=== PATIENT | female | born 1940 | race Caucasian/White ===

== ENCOUNTER 2017-09-01 08:08 | Inpatient (IN) | payer OTHER, SELFPAY ==
[2017-08-19 09:47] VITALS: BMI 25.4
[2017-09-01] VITALS (17 sets, daily range): BP systolic 85–168; BP diastolic 45–94; PULSE 71–82; RESP 12–20; TEMP 35–37.2; O2SAT 94–100; BMI 26.0
[2017-09-01] MEDS: LACTATED RINGERS 1,000 ML 42 ML IV ×2 (09:33→11:13)
--- NOTE | 2017-09-01 09:36 | SUR.OPER ---
Supine on padded OR bed. Pillow under head, arms secured on padded armboards <90 degree abduction. Safety belt across torso. Non-operative leg secured with tape over blanket over lower leg. Operative leg secured in [employer]/Parviz positioner.
[2017-09-01] MEDS: ACETAMINOPHEN 325 MG TABLET 975 MG PO (09:44)
[2017-09-01] MEDS: CELECOXIB 200 MG CAPSULE PO (09:44)
[2017-09-01] MEDS: CEFAZOLIN 2 GM/100 ML FROZ.PIGGY IV ×2 (09:48→15:44)
[2017-09-01] MEDS: BUPIVACAINE LIPOSOME 266 MG/20 ML VIAL INJ (10:58)
[2017-09-01] MEDS: MORPHINE 4 MG/ML INJ IV (10:58)
[2017-09-01] MEDS: BUPIVACAINE 0.25% W/ EPI 50 ML VIAL INJ (10:58)
--- NOTE | 2017-09-01 11:25 | PM.PREOP ---
Pre-operative Note Interval Note Pre-op Check: History & Physical Reviewed by Physician and Changes
--- NOTE | 2017-09-01 11:34 | DI.RAD.S_ITS ---
PROCEDURE: XR KNEE RT 1TO2V INDICATIONS: 76 year-old female with right knee replacement. TECHNIQUE: 2 postoperative view(s) of the knee acquired. [facility] 11[facility]23[facility], [facility]2014, 10:02. [facility] 09/09/2013, 15:07. FINDINGS: Bones: Patient is status post knee joint arthroplasty. Hardware components are in expected positions. Visualized bony structures are intact. Soft tissues: Overlying postoperative changes are noted, including intra-articular fluid and gas. IMPRESSION: Status post right knee arthroplasty, with hardware components in expected positions. Dictated by: Eddie Breaux M.D. on 09/01/2017 at 11:54 Approved by: Eddie Breaux M.D. on 09/01/2017 at 11:55
--- NOTE | 2017-09-01 11:37 | P.OP_ITS ---
Operative Date/Time/Diagnoses - Date of procedure: 09/01/17 Time of procedure: 11:35 Pre-op diagnosis: Right knee osteoarthritis Post-op diagnosis: same Procedure & Clinicians Procedure: right total knee replacement Same procedure as scheduled: Yes Indications: The patient has had progressively worsening right knee pain with radiographic changes consistent with arthritis. Non-operative management has failed and the patient has requested total knee replacement. The risks, benefits and alternatives to surgery were discussed with the patient prior to proceeding. Risks discussed included, but were not limited to, failure to relieve pain, stiffness, infection, nerve damage, deep venous thrombosis, pulmonary embolism, stroke, coma, heart attack, permanent paralysis and , as well as the potential need for eventual revision of the prosthetic. Surgeon: Oscar Parker [employer] Specialist: Sarah Pedro Click Yes if Unassisted: No Anesthesia Type: Spinal, Sedation and Local Operative Notes Findings: severe tricompartmental osteoarthritis Closure Type: primary Specimen(s): none sent Implants & Drains: Implants used in this procedure were manufactured by the [employer] and [employer] and included the BCS II Journey total knee replacement with a size 5 right cobalt chromium femur, size 5 right non porous tibial base plate, a 12 mm cross-linked polyethylene BCS II tibial insert and a 32 mm oval Lee Ann II patellar component. Applied: implant(s) Estimated Blood Loss (mL): 50 Blood products transfused: none Tourniquet time (min): 51 Procedure in detail: The patient was seen in the pre-operative area, where the patient identified the right knee as the operative site and this was marked with my initials. The patient received pre-operative antibiotics, and was taken to the operating room and placed on the operative table in the supine position. After satisfactory anesthesia, a night time babysitter out was performed. The right leg was encircled with a tourniquet about the proximal thigh, and the leg was prepared from the toes to the tourniquet with ChloroPrep in the usual fashion and draped through sterile drapes. The leg was elevated and exsanguinated with Eschmark bandage and the tourniquet inflated to 250 mmHg pressure. The knee was approached through an approximately 18 cm incision centered over the patella and carried into the knee through a medial parapatellar arthrotomy. The anterior osteophytes and soft tissues were removed. The rotational landmarks of Douglas's line and the transepicondylar axis were marked on the femur with electrocautery, and intramedullary guide holes for the femur and tibia were created. The distal femoral cut was made in 6 degrees of valgus using the intramedullary guide at the primary cut setting. The proximal tibial cut was then made using the intramedullary guide, taking 9 mm of bone off the less involved side. The extension gap was checked and the rotation of the femoral component confirmed with the gap balancing system. The anterior, posterior and chamfer cuts were then made. The posterior osteophytes and soft tissues were then removed. The posterior capsule was injected with part of a mixture of 50 ml 0.25% Marcaine mixed with 20 ml Exparel and 4 mg of morphine for post-operative pain control. The remainder of this mixture was injected into the capsule and subcutaneous tissues during cement curing. The tibia was prepared with the rotation set by an extra medullary guide. Trial tibial and femoral components were then placed and the intercondylar notch cut through the femoral trial. Range of motion was 0-135 degrees, with good stability throughout the range. The patella was then cut to accommodate the patellar prosthetic. There was no need for a lateral release. The trials were then removed, and the femoral hole plugged with a bone plug. The bone was prepared with pulsatile lavage, and dried with a sponge. Cement was applied and the final prosthetics placed. Excess cement was removed during and after cement curing. After confirming there was no extruded cement posteriorly, the final tibial insert was placed. The knee was copiously irrigated and the tourniquet deflated. Hemostasis was obtained. The capsule was closed with interrupted # 2 polyester suture. The subcutaneous layer was closed with 3-0 Vicryl, and the skin with a running 3-0 V-Lock suture and SteriStrips. An Aquacel Ag dressing was applied and the patient was taken to recovery having tolerated the procedure well. Complications: none Condition: stable Disposition: PACU Plan for aftercare: The patient will be maintained on a standard total knee replacement protocol with weight bearing as tolerated. The patient will receive aspirin and sequential compression devices for DVT prophylaxis. The patient will be discharged home when safe for the home environment.
[2017-09-01] MEDS: ONDANSETRON 4 MG/2 ML INJ IV ×2 (11:45→16:30)
[2017-09-01] MEDS: HYDROMORPHONE 2 MG INJ IV ×2 (12:41→22:50)
[2017-09-01] MEDS: LACTATED RINGERS 1,000 ML 125 ML IV ×2 (12:42→22:04)
[2017-09-01] MEDS: ONDANSETRON 4 MG ODT PO (13:41)
--- NOTE | 2017-09-01 13:55 | PT.IPTN ---
Current Diagnoses Bilateral primary osteoarthritis of knee (09/01/17) Contusion of right knee, subsequent encounter (09/01/17) Presence of left artificial knee joint (09/01/17) Surgery Performed Operation Date: 09/01/17 09:45 Actual Procedures p Total Knee Arthroplasty(Right) - Oscar Parker MD Physical Therapy Treatment Note M3 PT-IP Subjective Start: 09/01/17 13:54 Freq: NEEDED Status: Active Protocol: Document 09/01/17 13:55 RS (Rec: 09/01/17 13:55 RS [id number]) Subjective Physical Therapy Visit Type Type Administrative Note Visit Start Time 13:55 Visit Stop Time 13:55 Total Visit Minutes 0 Notes Per RN, pt not quite ready to attempt to work with therapy. RN recommends checking back later in the afternoon or waiting until the morning.
[2017-09-01] MEDS: OXYCODONE IR 10 MG TABLET PO (15:58)
[2017-09-01] MEDS: LORazepam 2 MG/ML SYRINGE 0.5 MG IV (17:07)
[2017-09-01] MEDS: ASPIRIN EC 81 MG TABLET PO (20:21)
[2017-09-01] MEDS: HYDROCODONE/ACET 5/325 TABLET 1 TAB PO (20:21)
[2017-09-01] MEDS: DOCUSATE 100 MG CAPSULE PO (20:21)
[2017-09-02] VITALS (8 sets, daily range): BP systolic 117–155; BP diastolic 69–91; PULSE 80–117; RESP 16–18; TEMP 36.5–37.4; O2SAT 91–99
[2017-09-02] MEDS: CEFAZOLIN 2 GM/100 ML FROZ.PIGGY IV (00:16)
[2017-09-02] MEDS: ACETAMINOPHEN 325 MG TABLET 650 MG PO (00:17)
[2017-09-02] MEDS: LORazepam 2 MG/ML SYRINGE 0.5 MG IV (00:27)
[2017-09-02] MEDS: HYDROMORPHONE 2 MG INJ IV (06:24)
[2017-09-02 06:30] LABS: Hematocrit 36.4 % (36-46); Hemoglobin 12.2 g/dL (12.0-16.0)
[2017-09-02] MEDS: LACTATED RINGERS 1,000 ML 125 ML IV (06:31)
[2017-09-02] MEDS: ONDANSETRON 4 MG/2 ML INJ IV ×2 (07:00→16:01)
[2017-09-02] MEDS: AMLODIPINE 2.5 MG TABLET PO (08:23)
[2017-09-02] MEDS: ASPIRIN EC 81 MG TABLET PO ×2 (08:23→20:02)
[2017-09-02] MEDS: DICYCLOMINE 10 MG CAPSULE PO (08:23)
[2017-09-02] MEDS: DOCUSATE 100 MG CAPSULE PO ×2 (08:23→20:02)
[2017-09-02] MEDS: OXYCODONE IR 10 MG TABLET PO ×3 (12:18→20:02)
--- NOTE | 2017-09-02 12:33 | PT.IIE ---
Current Diagnoses Bilateral primary osteoarthritis of knee (09/01/17) Contusion of right knee, subsequent encounter (09/01/17) Presence of left artificial knee joint (09/01/17) Surgery Performed Operation Date: 09/01/17 09:45 Actual Procedures p Total Knee Arthroplasty(Right) - Oscar Parker MD Surgical History (Last Updated 08/19/17 @ 10:18 by Nini Whitfield RN) History of arthroplasty of left knee (Acute) History of bilateral tubal ligation (Acute) History of section (Acute) History of ear surgery (Acute) Hx of cornea transplant (Acute) Hx of dilation and curettage (Acute) Hx of tonsillectomy (Acute) S/P right knee arthroscopy (Acute) Medical History (Last Updated 08/19/17 @ 10:18 by Nini Whitfield RN) Sam's esophagus (Acute) Diverticulosis (Acute) GERD (gastroesophageal reflux disease) (Acute) HTN (hypertension) (Acute) IBS (irritable bowel syndrome) (Acute) Migraine (Acute) Osteoarthritis (Acute) Physical Therapy Inpatient Evaluation/Re-Eval M1 PT/OT-IP Prior Functional Status Start: 09/01/17 13:54 Freq: NEEDED Status: Active Protocol: Document 09/02/17 09:05 RS (Rec: 09/02/17 12:33 RS [id number]) Medical Review Prior Functional Status Medical History Reviewed Yes Communication no known deficits Mobility and Gait ind to mod ind with SPC Social History Household Members spouse Living Arrangements House Number of Floors (Floors) One Floor Number of Stairs To Enter/Railing? 0STE Home Environment Standard Height Toilet Walk in Shower Home Equipment Front Wheel Walker Straight Cane Shower Seat without Backrest Hand Held Shower Hospital Bed Grab Bars In Shower Employment Status Retired Additional Social History Comment It would be good to re-confirm all of these details as pt was having difficulty staying awake during subjective portion of eval. M2 PT-IP Current Condition Start: 09/01/17 13:54 Freq: NEEDED Status: Active Protocol: Document 09/02/17 09:05 RS (Rec: 09/02/17 12:33 RS [id number]) Physical Therapy Current Condition Current Condition Evaluation Date 09/02/17 Treatment Diagnosis impaired mobility s/p R TKA Onset Date 09/01/17 Weight Bearing Status Weight Bearing Status Weight Bear as Tolerated M3 PT-IP Subjective Start: 09/01/17 13:54 Freq: NEEDED Status: Active Protocol: Document 09/02/17 09:05 RS (Rec: 09/02/17 12:33 RS [id number]) Subjective Physical Therapy Visit Type Type Initial Evaluation Visit Start Time 08:20 Visit Stop Time 09:05 Total Visit Minutes 45 Physical Therapy Visit Comments Patient Comments Pt reports still be nauseous but is more than happy to participat in therapy session. Patient/Caregiver Goals go home Therapy Pain Assessment Pain When Pain Assessed At Rest Pain Present Pain Present Denied Pain M4 PT-IP Mobility and Gait Start: 09/01/17 13:54 Freq: NEEDED Status: Active Protocol: Document 09/02/17 09:05 RS (Rec: 09/02/17 12:33 RS [id number]) PT-Bed Mobility Assessment Supine to Sit Supine to Sit Contact Guard Assistance 1 Person Assistance Head of Bed Elevated Scooting Scooting to Edge of Bed Contact Guard Assistance PT-Transfer Assessment Sit to and From Stand Sit to and from Stand Contact Guard Assistance 1 Person Assistance Use of Upper Extremities Equipment Transfer Assistive Device Gait Belt Front Wheeled Walker Transfers Transfer Destination Chair Transfer Technique Stand Step Pivot Transfer Ability Level of Assist Contact Guard Assistance 1 Person Assistance Use of Upper Extremities Comments Mobility Comments Pt better able to stay awake in sitting, denied dizziness but reported just feeling really out of it I feel like I am really high. Vitals were normal. Gait Assessment Comments Gait Comments due to pt's report of feeling really high, walking was not attempted this session Stair Climbing Assessment Comments Stair Climbing Comments not assessed PT-Balance Assessment Sitting Balance and Reactions Static Sitting Balance Ability Good Dynamic Sitting Balance Ability Fair Standing Balance and Reactions Static Standing Balance Ability Fair Dynamic Standing Balance Ability Fair Device Used FWW M5 PT-IP Objective Assessments Start: 09/01/17 13:54 Freq: NEEDED Status: Active Protocol: Document 09/02/17 09:05 RS (Rec: 09/02/17 12:33 RS [id number]) Orientation Orientation/Cognition Level of Alertness Confusional State Orientation Name Situation Safety Awareness Understands Safety Issues Comments Cognition seems impaired, likely related to pain medication Gross Range of Motion Upper Extremity ROM Assessment Within Functional Limits Lower Extremity ROM Assessment Right Impaired Strength Upper Extremity Strength Assessment Within Functional Limits Comments Strength Comments RLE not tested, LLE WFL M6 PT-IP Treatment Start: 09/01/17 13:54 Freq: NEEDED Status: Active Protocol: Document 09/02/17 09:05 RS (Rec: 09/02/17 12:33 RS [id number]) Physical Therapy Treatment Exercises Exercises Ankle Pumps Quad Sets Heel Slides Straight Leg Raises Short Arc Quads Passive Knee Extension Hang Seated Knee Flexion/Extension Knee ROM Measurement 5-85 Education Education Provided Precautions Weight Bearing Status Post-Op Packet Safety M7 PT-IP Assessment and Plan Start: 09/01/17 13:54 Freq: NEEDED Status: Active Protocol: Document 09/02/17 09:05 RS (Rec: 09/02/17 12:33 RS [id number]) PT Summary Assessment and Plan Potential Rehabilitation Potential Good Status of Condition at Evaluation Evolving Summary Impairments Pain ROM Strength Cognition Bed Mobility Transfers Gait Activity Tolerance Progress Towards Goals Progressing Toward Goals Slow Progress due to Medical Issues Assessment Summary Pt is a little limited in full participation by decreased alertness, likely secondary to pain medication. RN aware. Anticipate that with continued acute skilled PT and regular mobilization with nursing that pt will be safe to discharge directly home with assist from family. Pt will need follow- up PT, will decide on HH vs OP closer to discharge. Pt in agreement with this plan. Goals Bed Mobility Goal Independent Transfer Goal Standby Assistance Front Wheeled Walker Gait Goal Standby Assistance Front Wheel Walker Gait Distance 50 Days to Meet Goals 2 Frequency of Treatment Frequency Of Treatment Twice a Day Treatment Plan Physical Therapy Treatment Plan Bed Mobility Training Transfer Training Gait Training Therapeutic Exercise Post Op Education Discharge Planning Other Recommendations and Next Treatment trial walking Focus Recommendations To Nursing Amount of Assist Needed 1 Person Assist Discharge Recommendations PT Discharge Recommendations Home with Assistance Home Health Outpatient PT Provider Visit Care Team Role Provider Type Oscar Parekr MD Admit Provider Physician Attending Provider Specialty: Orthopedic Surgery
--- NOTE | 2017-09-02 14:32 | P.PN_ITS ---
Subjective Date Patient Seen: 09/02/17 Time Patient Seen: 14:26 Interval history: Pt in bed. States pain is under control. Nurse on duty states that she has been vomiting but has BS. Pt states she is passing gas. PD 1 . RT TKA by Dr[address] Parker. Has been up with PT but only ambulated in room. Exam Vital Signs (past 8 hours): Vital Signs - 8 hr 3 09/02/17 07:35 09/02/17 11:35 Temperature 97.9 F 98.0 F Pulse Rate 89 92 H Respiratory Rate 17 16 Blood Pressure 129/69 H 147/79 H Pulse Oximetry 97 96 Pulse Oximetry 96 Oxygen Delivery Method Nasal Cannula Oxygen Flow Rate 2 Narrative Exam Narrative: Pt in bed. Appears comfortable. A&Ox3. Rt knee mod swelling. Rt knee dressing with one spot of blood at lower end rest of dressing is dry. Bob calves soft and nontender. NV status intact. ABD nondistended or pain with palaption in 4 quadrants. Objective Labs Result Diagrams: 09/02/17 06:18 Labs: Laboratory Results - last 24 hr 09/02/17 06:18 Hgb 12.2 Hct 36.4 Assessment & Plan Post-op (1) Knee osteonecrosis, right: Problem details: Pt PD 1. RT TKA by Dr. Parker. Will try patient on Reglan for N/V instead of Zofran. PT to continue to ambulate with PT. DVT prophylaxis with ASA 81mg BID and SCDs. Possible D/C tomorrow home if nausea under control. Current Visit: Yes Status: Acute Postoperative Procedures Operation Date: 09/01/17 09:45 Actual Procedures Side Surgeon p Total Knee Arthroplasty Right Oscar Parker MD Time Spent With Patient less than 15 minutes
--- NOTE | 2017-09-02 14:52 | CM.DANOTE ---
DCP Chart Review Patient is a 76 year old female who was admitted on 09/01/17 for surgery. Pt has [facility] for insurance and her PCP is not listed. Per Ortho PA, pt tolerated surgical procedure well but not stable for d/c yet today. Per PT, pt was quite sleepy but ambulated well and likely safe to d/c home when medically stable with HH vs Outpt PT pending progress. Plan: SW to follow in the morning after further PT for bedside assessment to discuss d/c home with possible HH vs Outpt PT pending pt progress. MARIXA Lopez
--- NOTE | 2017-09-02 17:32 | PT.IPTN ---
Current Diagnoses Bilateral primary osteoarthritis of knee (09/01/17) Osteonecrosis, unspecified (09/01/17) Contusion of right knee, subsequent encounter (09/01/17) Presence of left artificial knee joint (09/01/17) Surgery Performed Operation Date: 09/01/17 09:45 Actual Procedures p Total Knee Arthroplasty(Right) - Oscar Parker MD Physical Therapy Treatment Note M2 PT-IP Current Condition Start: 09/01/17 13:54 Freq: NEEDED Status: Active Protocol: Document 09/02/17 09:05 RS (Rec: 09/02/17 12:33 RS [id number]) Physical Therapy Current Condition Current Condition Evaluation Date 09/02/17 Treatment Diagnosis impaired mobility s/p R TKA Onset Date 09/01/17 Weight Bearing Status Weight Bearing Status Weight Bear as Tolerated M3 PT-IP Subjective Start: 09/01/17 13:54 Freq: NEEDED Status: Active Protocol: Document 09/02/17 17:27 AB (Rec: 09/02/17 17:32 AB [id number]) Subjective Physical Therapy Visit Type Type Treatment Note Visit Start Time 16:27 Visit Stop Time 16:54 Total Visit Minutes 27 Number of SYSTEM ANALYST Visits 0 Physical Therapy Visit Comments Patient Comments pt agreeable to do therapy Therapy Pain Assessment Pain When Pain Assessed During Mobility Pain Present Pain Present Pain Reported Location Rt Knee Intensity 5 Scale Used Numeric (1 - 10) Pain Management Techniques Apply Cold Re-positioning Timing of Activity with Medications M4 PT-IP Mobility and Gait Start: 09/01/17 13:54 Freq: NEEDED Status: Active Protocol: Document 09/02/17 17:27 AB (Rec: 09/02/17 17:32 AB [id number]) PT-Bed Mobility Assessment Supine to Sit Supine to Sit Standby Assistance PT-Transfer Assessment Sit to and From Stand Sit to and from Stand Standby Assistance Contact Guard Assistance Equipment Transfer Assistive Device Gait Belt Front Wheeled Walker Orthotic/Prosthetic Devices or Brace: No Comments Mobility Comments completed sit <>stand x 4 reps with cues for safety. Gait Assessment Gait Gait Assistance Required: Contact Guard Assist Distance (Feet) (feet) 75 Able to Maintain Weight Bearing Status Yes During Gait Assistive Devices Assistive Device Gait Belt Front Wheeled Walker Orthotic/Prosthetic Devices or Brace: No Gait Deviations General Gait Pattern Decreased Stride Length Factors Limiting Gait Function Factors Limiting Gait Function Decreased Activity Tolerance Decreased Strength Pain Poor Balance Poor Safety Awareness M5 PT-IP Objective Assessments Start: 09/01/17 13:54 Freq: NEEDED Status: Active Protocol: Document 09/02/17 09:05 RS (Rec: 09/02/17 12:33 RS [id number]) Orientation Orientation/Cognition Level of Alertness Confusional State Orientation Name Situation Safety Awareness Understands Safety Issues Comments Cognition seems impaired, likely related to pain medication Gross Range of Motion Upper Extremity ROM Assessment Within Functional Limits Lower Extremity ROM Assessment Right Impaired Strength Upper Extremity Strength Assessment Within Functional Limits Comments Strength Comments RLE not tested, LLE WFL M6 PT-IP Treatment Start: 09/01/17 13:54 Freq: NEEDED Status: Active Protocol: Document 09/02/17 09:05 RS (Rec: 09/02/17 12:33 RS [id number]) Physical Therapy Treatment Exercises Exercises Ankle Pumps Quad Sets Heel Slides Straight Leg Raises Short Arc Quads Passive Knee Extension Hang Seated Knee Flexion/Extension Knee ROM Measurement 5-85 Education Education Provided Precautions Weight Bearing Status Post-Op Packet Safety M7 PT-IP Assessment and Plan Start: 09/01/17 13:54 Freq: NEEDED Status: Active Protocol: Document 09/02/17 17:27 AB (Rec: 09/02/17 17:32 AB [id number]) PT Summary Assessment and Plan Potential Rehabilitation Potential Good Summary Impairments Pain ROM Strength Balance Cognition Bed Mobility Transfers Gait Activity Tolerance Progress Towards Goals Progressing Toward Goals Assessment Summary Pt's daughter present during tx and informed regarding cueing pt during mobility for safety as pt tends to be impulsive. Pt's daughter and agreed and stated that between her and her dad, pt will have somebody with her at all times. Goals Bed Mobility Goal Independent Transfer Goal Standby Assistance Front Wheeled Walker Gait Goal Standby Assistance Front Wheel Walker Gait Distance 50 Days to Meet Goals 2 Treatment Plan Physical Therapy Treatment Plan Bed Mobility Training Transfer Training Gait Training Therapeutic Exercise Post Op Education Discharge Planning Other Recommendations and Next Treatment ambulation Focus Recommendations To Nursing Amount of Assist Needed 1 Person Assist Discharge Recommendations PT Discharge Recommendations Home with Assistance Outpatient PT
[2017-09-03] VITALS (9 sets, daily range): BP systolic 114–163; BP diastolic 56–77; PULSE 87–117; RESP 16–19; TEMP 36.8–38.7; O2SAT 88–98
[2017-09-03] MEDS: ONDANSETRON 4 MG/2 ML INJ IV (00:44)
[2017-09-03] MEDS: OXYCODONE IR 10 MG TABLET PO ×3 (00:44→10:14)
[2017-09-03] MEDS: ONDANSETRON 4 MG ODT PO (05:14)
[2017-09-03] MEDS: PANTOPRAZOLE 20 MG TABLET PO (07:39)
--- NOTE | 2017-09-03 08:03 | P.PN_ITS ---
Subjective Date Patient Seen: 09/03/17 Time Patient Seen: 07:55 Interval history: Pt is s/p Rt TKA by Dr. Parker. PD 2. Pt's nausea and vomiting has settle down last night. Pt has not eaten a meal yet but has been able to tolerate crackers and brandi steffi. She will try to eat breakfast this am. Knee pain is tolerable and she states it feels better today. Exam Vital Signs (past 8 hours): Vital Signs - 8 hr 3 09/03/17 00:40 09/03/17 05:00 Temperature 98.3 F 98.3 F Pulse Rate 109 H 100 H Respiratory Rate 16 18 Blood Pressure 163/77 H 134/60 H Pulse Oximetry 96 97 Pulse Oximetry 97 Oxygen Delivery Method Nasal Cannula Oxygen Flow Rate 2 Narrative Exam Narrative: Pt in bed. A&O x3. Appears comfortable. Rt Knee Aquacel dressing with few spots of blood, mostly at bottom of incision. Mod swelling in right knee. Bob calves soft and nontender. NV status intact. Abd soft, nontender, nondistended. Objective Labs Result Diagrams: 09/02/17 06:18 Assessment & Plan Post-op Postoperative Procedures Operation Date: 09/01/17 09:45 Actual Procedures Side Surgeon p Total Knee Arthroplasty Right Oscar Parker MD Pt is PD [address] Parker. Rt knee is doing well. NV has resolved. May be able to go home this afternoon if she is able to tolerate a meal. Continue PT. Will need rx for Zofran for d/c. Time Spent With Patient less than 15 minutes
[2017-09-03] MEDS: AMLODIPINE 2.5 MG TABLET PO (10:14)
[2017-09-03] MEDS: DICYCLOMINE 10 MG CAPSULE PO (10:14)
[2017-09-03] MEDS: ASPIRIN EC 81 MG TABLET PO ×2 (10:14→20:49)
[2017-09-03] MEDS: DOCUSATE 100 MG CAPSULE PO ×2 (10:14→20:49)
[2017-09-03] MEDS: ACETAMINOPHEN 325 MG TABLET 650 MG PO ×2 (11:29→19:12)
--- NOTE | 2017-09-03 13:10 | PT.IPTN ---
Current Diagnoses Bilateral primary osteoarthritis of knee (09/01/17) Osteonecrosis, unspecified (09/01/17) Contusion of right knee, subsequent encounter (09/01/17) Presence of left artificial knee joint (09/01/17) Surgery Performed Operation Date: 09/01/17 09:45 Actual Procedures p Total Knee Arthroplasty(Right) - Oscar Parker MD Physical Therapy Treatment Note M2 PT-IP Current Condition Start: 09/01/17 13:54 Freq: NEEDED Status: Active Protocol: Document 09/02/17 09:05 RS (Rec: 09/02/17 12:33 RS [id number]) Physical Therapy Current Condition Current Condition Evaluation Date 09/02/17 Treatment Diagnosis impaired mobility s/p R TKA Onset Date 09/01/17 Weight Bearing Status Weight Bearing Status Weight Bear as Tolerated M3 PT-IP Subjective Start: 09/01/17 13:54 Freq: NEEDED Status: Active Protocol: Document 09/03/17 10:46 CLB (Rec: 09/03/17 13:10 CLB [id number]) Subjective Physical Therapy Visit Type Type Patient Unavailable Notes LENS GRINDER ROUGH stated pt has temp of 101. 6, HR of 119 at rest, pt stated she is feeling shaky and weak due to fever. Will check back with pt in P.M.
--- NOTE | 2017-09-03 14:01 | DI.US.S_ITS ---
PROCEDURE: US PERIPH VENOUS LOW EXTREM BI INDICATIONS: 76 year-old female with shortness of breath. TECHNIQUE: Real-time imaging, as well as color and pulse Doppler interrogation, were performed of the deep veins of both legs from the inguinal ligament to the popliteal fossa. COMPARISON: None. FINDINGS: The deep veins are normally compressible, and free of intraluminal thrombus. Color and pulse Doppler demonstrate normal phasic intravascular flow. There is normal augmentation response to distal compression maneuver. IMPRESSION: No sonographic evidence for lower extremity deep venous thrombosis. Dictated by: Eddie Breaux M.D. on 09/03/2017 at 15:45 Approved by: Eddie Breaux M.D. on 09/03/2017 at 15:46
[2017-09-03 14:31] LABS: Add Manual Diff / Slide Review NO; Basophils Percent Auto 0.4 % (0-2); Eosinophils Percent Auto 0.5 % (2-4); Hematocrit 29.2 % (36-46); Mean Corpuscular HGB Conc 34.3 % (30-36); Mean Corpuscular Hemoglobin 31.6 PG (26-34); Monocytes Percent Auto 10.5 % (3-14); Neutrophils Absolute Auto 7100 /uL (3000-5900); Neutrophils Percent Auto 79.6 % (50-75); Platelet Count 196 X10^3/uL (150-400); Red Blood Cell Count 3.18 X10^6/uL (4.0-5.2); Red Cell Distribution Width 13.5 % (11.6-14.8)
[2017-09-03 14:43] LABS: Alanine Aminotransferase 28 IU/L (9-52); Albumin 2.9 g/dL (3.5-5.0); Alkaline Phosphatase 54 U/L (38-126); Aspartate Aminotransferase 15 IU/L (14-36); BUN Creatinine Ratio 12.5 (6-22); Bilirubin Total 0.6 mg/dL (0.2-1.3); Blood Urea Nitrogen 10 mg/dL (7-17); Calcium 8.3 mg/dL (8.4-10.2); Carbon Dioxide 31 mmol/L (22-32); Chloride 96 mmol/L (98-107); Estimated Glomerular Filt Rate > 60.0 mL/min (>60); Globulin 2.8 g/dL (1.7-4.1); Glucose 118 mg/dL (80-110); HEMOLYSIS < 15 (0-50); Sodium 133 mmol/L (137-145); Total Protein 5.7 g/dL (6.3-8.2)
--- NOTE | 2017-09-03 14:55 | PT.IPTN ---
Current Diagnoses Bilateral primary osteoarthritis of knee (09/01/17) Osteonecrosis, unspecified (09/01/17) Contusion of right knee, subsequent encounter (09/01/17) Presence of left artificial knee joint (09/01/17) Surgery Performed Operation Date: 09/01/17 09:45 Actual Procedures p Total Knee Arthroplasty(Right) - Oscar Parker MD Physical Therapy Treatment Note M2 PT-IP Current Condition Start: 09/01/17 13:54 Freq: NEEDED Status: Active Protocol: Document 09/02/17 09:05 RS (Rec: 09/02/17 12:33 RS [id number]) Physical Therapy Current Condition Current Condition Evaluation Date 09/02/17 Treatment Diagnosis impaired mobility s/p R TKA Onset Date 09/01/17 Weight Bearing Status Weight Bearing Status Weight Bear as Tolerated M3 PT-IP Subjective Start: 09/01/17 13:54 Freq: NEEDED Status: Active Protocol: Document 09/03/17 14:55 GGD (Rec: 09/03/17 16:35 GGD [id number]) Subjective Physical Therapy Visit Type Type Treatment Note Visit Start Time 14:30 Visit Stop Time 14:55 Total Visit Minutes 25 Number of DIRECTOR OF SOFTWARE ENGINEERING Visits 1 Physical Therapy Visit Comments Patient Comments Pt want's to go back to bed. Therapy Pain Assessment Pain When Pain Assessed During Mobility Pain Present Pain Present Pain Reported M4 PT-IP Mobility and Gait Start: 09/01/17 13:54 Freq: NEEDED Status: Active Protocol: Document 09/03/17 14:55 GGD (Rec: 09/03/17 16:35 GGD [id number]) PT-Bed Mobility Assessment Sit to Supine Sit to Supine Minimal Assistance 1 Person Assistance PT-Transfer Assessment Sit to and From Stand Sit to and from Stand Minimal Assistance 1 Person Assistance Use of Upper Extremities Equipment Transfer Assistive Device Gait Belt Front Wheeled Walker Transfers Transfer Destination Bed Transfer Technique Stand Step Pivot Transfer Ability Level of Assist Minimal Assistance 1 Person Assistance Protocol: Document 09/03/17 14:55 GGD (Rec: 09/03/17 16:36 GGD [id number]) Physical Therapy Treatment Exercises Exercises Ankle Pumps Gluteal Sets Quad Sets Heel Slides Short Arc Quads M7 PT-IP Assessment and Plan Start: 09/01/17 13:54 Freq: NEEDED Status: Active Protocol: Document 09/03/17 14:55 GGD (Rec: 09/03/17 16:35 ELI [id number]) PT Summary Assessment and Plan Summary Assessment Summary Pt had LOB with transfer steps . She needed increase in cueing for safety. She was able to take small transfer steps with min A. Frequency of Treatment Frequency Of Treatment Twice a Day Treatment Plan Other Recommendations and Next Treatment gait, bed mobility. Focus Recommendations To Nursing Amount of Assist Needed 1 Person Assist Discharge Recommendations PT Discharge Recommendations Home with Assistance Outpatient PT
--- NOTE | 2017-09-03 15:34 | DI.RAD.S_ITS ---
PROCEDURE: XR CHEST 1V INDICATIONS: 76 year-old female with postoperative fevers. TECHNIQUE: One view of the chest was acquired. COMPARISON: [facility], CR, XR ABD ACUTE SERIES 3VW, 10/18/2015, 8:33. FINDINGS: Surgical changes and devices: None. Lungs and pleura: No pleural effusions or pneumothorax. Lungs are clear. Mediastinum: Mediastinal contours appear normal. Heart size is normal. There is aortic atherosclerosis. Bones and chest wall: No suspicious bony lesions. Overlying soft tissues appear unremarkable. IMPRESSION: No acute cardiopulmonary disease. Dictated by: Eddie Breaux M.D. on 09/03/2017 at 16:02 Approved by: Eddie Breaux M.D. on 09/03/2017 at 16:03
--- NOTE | 2017-09-03 15:40 | CM.DPC ---
DCP Cont: Per MD, pt not stable for d/c yet today. Per PT, pt did well and plans to have spouse and adult Dtr stay with at d/c and recommending home with outpt PT. Per RN, pt had fever and weak this afternoon and SW attempted to do bedside assessment but pt was having bedside procedure done. Plan: SW to continue to follow for likely home with family support and outpt PT. MARIXA Lopez
--- NOTE | 2017-09-03 15:42 | PC.NURSE ---
Leanne note: Patient awake/alert, oriented to self, date, time, place and situation. Pleasant, cooperative and calm. No c/o pain or discomfort. Venous doppler performed at bedside and Chest dental technologist awaiting to perform procedure. Dr. Kessler at bedside. Call light within reach, BA active.
--- NOTE | 2017-09-03 15:46 | PM.CN ---
History of Present Illness Date Patient Seen: 09/03/17 Time Patient Seen: 15:30 Chief complaint: [id number] Reason for consult: I was asked by Dr. Parker to evaluate this patient for postoperative fever Requesting provider: Oscar Parker Narrative: 76-year-old female, under the primary care of Dr.Mark Chairez who was admitted to the [facility] 2 days ago for elective right total knee arthroplasty. Today she was found to be confused. She also was noted to have fever of 101. Patient denies coughs. She has not noted any dysuria. Her Kelly catheter has been removed. She has not noticed any worsening of right knee pain. FORMERLY [facility], [facility] Medical History Knee osteonecrosis, right (Acute) Sam's esophagus (Acute) Diverticulosis (Acute) GERD (gastroesophageal reflux disease) (Acute) HTN (hypertension) (Acute) IBS (irritable bowel syndrome) (Acute) Migraine (Acute) Osteoarthritis (Acute) Surgical History History of arthroplasty of left knee (Acute) History of bilateral tubal ligation (Acute) History of section (Acute) History of ear surgery (Acute) Hx of cornea transplant (Acute) Hx of dilation and curettage (Acute) Hx of tonsillectomy (Acute) S/P right knee arthroscopy (Acute) Social History household members: spouse Smoking Status: Never smoker alcohol intake: current Comment: She is . She lives with her and daughter. Denies alcohol drinking or cigarette smoking Meds Home Medications Medication Instructions Recorded Confirmed Type amlodipine 2.5 mg PO DAILY 08/19/17 09/01/17 History dicyclomine 10 mg PO QAM 08/19/17 09/01/17 History methocarbamol 1 g PO BEDTIME PRN 08/19/17 09/01/17 History omeprazole 20 mg PO BEDTIME PRN 08/19/17 09/01/17 History polyethylene glycol 3350 [Miralax] 0.5 g/kg PO DAILY 08/19/17 09/01/17 History acetaminophen 650 mg PO Q6HR #0 tab 09/03/17 Rx aspirin 81 mg PO BID #90 tab 09/03/17 Rx ondansetron 4 mg PO Q4-6H PRN #30 tab 09/03/17 Rx oxycodone 10 mg PO Q4H PRN #0 tab 09/03/17 Rx Allergies Allergy/AdvReac Type Severity Reaction Status Date / Time adhesive Allergy Mild RASH Verified 09/01/17 12:39 lactose Allergy Mild LACTOSE Verified 09/01/17 12:40 INTOLERANCE Penicillins Allergy Mild Rash Verified 08/19/17 10:02 NSAIDS (Non-Steroidal AdvReac Severe Pt has an Verified 08/19/17 10:11 Anti-Inflamma ulcer lisinopril AdvReac Mild Cough Verified 08/19/17 10:02 Review of Systems Constitutional Constitutional: Reports fever(s) Cardiovascular Comments: No chest pain or palpitation Respiratory Comments: Denies coughing or shortness of breath Gastrointestinal Comments: Denies abdominal pain Genitourinary Comments: No dysuria Musculoskeletal Musculoskeletal: Reports joint swelling Exam Vital Signs (past 8 hours): Vital Signs - 8 hr 09/03/17 11:25 09/03/17 11:29 09/03/17 12:56 Temperature 101.6 F H 100.9 F H 98.5 F Pulse Rate 117 H Respiratory Rate 18 Blood Pressure 116/64 Pulse Oximetry 88 L 09/03/17 13:39 Temperature 99 F Pulse Rate 92 H Respiratory Rate Blood Pressure Pulse Oximetry 96 Pulse Oximetry 96 Oxygen Delivery Method Nasal Cannula Oxygen Flow Rate 2 Narrative Exam Narrative: GENERAL: Well-appearing, well-nourished and in no acute distress. HEENT: Head normocephalic, atraumatic. Eyes pupils equal round NECK: Supple, no JVD, CHEST: Breath sounds equal bilaterally, no wheezes rales or rhonchi. CARDIAC: Regular rate and rhythm without murmurs, rubs or gallops. ABDOMEN: Soft, nontender. Normoactive bowel sounds all 4 quadrants. No guarding or rebound. EXTREMITIES: Normal range of motion, right knee was dressed in dressing. Right knee does have mild soft tissue swelling and subtle erythema NEUROLOGICAL: Alert and oriented; Normal muscle strength. SKIN: Warm, dry, no petechiae, no rashes or lesions. Objective Labs Result Diagrams: 09/03/17 14:03 09/03/17 14:03 Labs: Laboratory Results - last 24 hr 09/03/17 09/03/17 14:03 14:03 WBC 9.0 RBC 3.18 L Hgb 10.0 L Hct 29.2 L MCV 92.0 MCH 31.6 MCHC 34.3 RDW 13.5 Plt Count 196 Neut % (Auto) 79.6 H Lymph % (Auto) 9.0 L [place] % (Auto) 10.5 Eos % (Auto) 0.5 L Baso % (Auto) 0.4 Neut # (Auto) 7100 H Sodium 133 L Potassium 4.0 Chloride 96 L Carbon Dioxide 31 BUN 10 Creatinine 0.80 Estimated GFR > 60.0 BUN/Creatinine Ratio 12.5 Glucose 118 H Calcium 8.3 L Total Bilirubin 0.6 AST 15 ALT 28 Alkaline Phosphatase 54 Total Protein 5.7 L Albumin 2.9 L Globulin 2.8 Albumin/Globulin Ratio 1.0 Assessment & Plan Plan: Assessment/Plan Narrative: 1. Fever after right total knee arthroplasty 2 days ago: Her CBC showed normal white blood cell count. We will check her urinalysis and chest x-ray. There is concern of possible postoperative infection. We will draw blood cultures. Continue monitor her clinically. 2. Hypertension: Her blood pressure is reasonably controlled. Continue outpatient medications.
--- NOTE | 2017-09-03 15:53 | P.CONS_ITS ---
History of Present Illness Date Patient Seen: 09/03/17 Time Patient Seen: 15:30 Chief complaint: [id number] Reason for consult: I was asked by Dr. Parker to evaluate this patient for postoperative fever Requesting provider: Oscar Parker Narrative: 76-year-old female, under the primary care of Dr.Mark Chairez who was admitted to the [facility] 2 days ago for elective right total knee arthroplasty. Today she was found to be confused. She also was noted to have fever of 101. Patient denies coughs. She has not noted any dysuria. Her Kelly catheter has been removed. She has not noticed any worsening of right knee pain. [facility] Medical History Knee osteonecrosis, right (Acute) Sam's esophagus (Acute) Diverticulosis (Acute) GERD (gastroesophageal reflux disease) (Acute) HTN (hypertension) (Acute) IBS (irritable bowel syndrome) (Acute) Migraine (Acute) Osteoarthritis (Acute) Surgical History History of arthroplasty of left knee (Acute) History of bilateral tubal ligation (Acute) History of section (Acute) History of ear surgery (Acute) Hx of cornea transplant (Acute) Hx of dilation and curettage (Acute) Hx of tonsillectomy (Acute) S/P right knee arthroscopy (Acute) Social History household members: spouse Smoking Status: Never smoker alcohol intake: current Comment: She is . She lives with her and daughter. Denies alcohol drinking or cigarette smoking Meds Home Medications Medication Instructions Recorded Confirmed Type amlodipine 2.5 mg PO DAILY 08/19/17 09/01/17 History dicyclomine 10 mg PO QAM 08/19/17 09/01/17 History methocarbamol 1 g PO BEDTIME PRN 08/19/17 09/01/17 History omeprazole 20 mg PO BEDTIME PRN 08/19/17 09/01/17 History polyethylene glycol 3350 [Miralax] 0.5 g/kg PO DAILY 08/19/17 09/01/17 History acetaminophen 650 mg PO Q6HR #0 tab 09/03/17 Rx aspirin 81 mg PO BID #90 tab 09/03/17 Rx ondansetron 4 mg PO Q4-6H PRN #30 tab 09/03/17 Rx oxycodone 10 mg PO Q4H PRN #0 tab 09/03/17 Rx Allergies Allergy/AdvReac Type Severity Reaction Status Date / Time adhesive Allergy Mild RASH Verified 09/01/17 12:39 lactose Allergy Mild LACTOSE Verified 09/01/17 12:40 INTOLERANCE Penicillins Allergy Mild Rash Verified 08/19/17 10:02 NSAIDS (Non-Steroidal AdvReac Severe Pt has an Verified 08/19/17 10:11 Anti-Inflamma ulcer lisinopril AdvReac Mild Cough Verified 08/19/17 10:02 Review of Systems Constitutional Constitutional: Reports fever(s) Cardiovascular Comments: No chest pain or palpitation Respiratory Comments: Denies coughing or shortness of breath Gastrointestinal Comments: Denies abdominal pain Genitourinary Comments: No dysuria Musculoskeletal Musculoskeletal: Reports joint swelling Exam Vital Signs (past 8 hours): Vital Signs - 8 hr 3 09/03/17 11:25 09/03/17 11:29 09/03/17 12:56 Temperature 101.6 F H 100.9 F H 98.5 F Pulse Rate 117 H Respiratory Rate 18 Blood Pressure 116/64 Pulse Oximetry 88 L 3 09/03/17 13:39 Temperature 99 F Pulse Rate 92 H Respiratory Rate Blood Pressure Pulse Oximetry 96 Pulse Oximetry 96 Oxygen Delivery Method Nasal Cannula Oxygen Flow Rate 2 Narrative Exam Narrative: GENERAL: Well-appearing, well-nourished and in no acute distress. HEENT: Head normocephalic, atraumatic. Eyes pupils equal round NECK: Supple, no JVD, CHEST: Breath sounds equal bilaterally, no wheezes rales or rhonchi. CARDIAC: Regular rate and rhythm without murmurs, rubs or gallops. ABDOMEN: Soft, nontender. Normoactive bowel sounds all 4 quadrants. No guarding or rebound. EXTREMITIES: Normal range of motion, right knee was dressed in dressing. Right knee does have mild soft tissue swelling and subtle erythema NEUROLOGICAL: Alert and oriented; Normal muscle strength. SKIN: Warm, dry, no petechiae, no rashes or lesions. Objective Labs Result Diagrams: 09/03/17 14:03 09/03/17 14:03 Labs: Laboratory Results - last 24 hr 09/03/17 09/03/17 14:03 14:03 WBC 9.0 RBC 3.18 L Hgb 10.0 L Hct 29.2 L MCV 92.0 MCH 31.6 MCHC 34.3 RDW 13.5 Plt Count 196 Neut % (Auto) 79.6 H Lymph % (Auto) 9.0 L [place] % (Auto) 10.5 Eos % (Auto) 0.5 L Baso % (Auto) 0.4 Neut # (Auto) 7100 H Sodium 133 L Potassium 4.0 Chloride 96 L Carbon Dioxide 31 BUN 10 Creatinine 0.80 Estimated GFR > 60.0 BUN/Creatinine Ratio 12.5 Glucose 118 H Calcium 8.3 L Total Bilirubin 0.6 AST 15 ALT 28 Alkaline Phosphatase 54 Total Protein 5.7 L Albumin 2.9 L Globulin 2.8 Albumin/Globulin Ratio 1.0 Assessment & Plan Plan: Assessment/Plan Narrative: 1. Fever after right total knee arthroplasty 2 days ago: Her CBC showed normal white blood cell count. We will check her urinalysis and chest x-ray. There is concern of possible postoperative infection. We will draw blood cultures. Continue monitor her clinically. 2. Hypertension: Her blood pressure is reasonably controlled. Continue outpatient medications.
[2017-09-03 22:37] LABS: Bacteria Urine None Seen; RBC Urine None Seen (0-5/HPF); WBC Urine None Seen (0-5/HPF)
[2017-09-03 22:40] LABS: Appearance Urine UA CLEAR; Bilirubin Urine UA NEGATIVE (NEGATIVE); Color Urine UA YELLOW; Glucose Urine UA NEGATIVE (Normal); Ketones Urine UA NEGATIVE (NEGATIVE); Leukocyte Esterase Urine UA NEGATIVE (NEGATIVE); Nitrite Urine UA Negative (Negative); Occult Blood Urine UA NEGATIVE (Negative); Protein Urine UA NEGATIVE (Negative); Specific Gravity Urine UA <=1.005 (1.000-1.035); Urobilinogen Urine UA 0.2 E.U./dL (0.2); pH Urine UA 6.5 (4.5-8.0)
[2017-09-03 22:47] LABS: Culture Indicated Urine Cult Not Indicated; Urine Comments Microscopic Normal
[2017-09-04] MEDS: ACETAMINOPHEN 325 MG TABLET 650 MG PO ×3 (00:24→11:01)
[2017-09-04 00:47] VITALS: BP 129/67; PULSE 90; RESP 19; TEMP 36.7; O2SAT 97
[2017-09-04 04:46] VITALS: BP 151/70; RESP 18; TEMP 37.1; O2SAT 93
[2017-09-04 08:00] VITALS: BP 135/69; PULSE 93; RESP 20; TEMP 36.6; O2SAT 98
--- NOTE | 2017-09-04 08:46 | P.DS_ITS ---
History of Present Illness Date Patient Seen: 09/04/17 Time Patient Seen: 08:32 Chief complaint: [id number] Narrative: Patient is status post right TKA postop day 3. She is doing well, denies any nausea vomiting. She is eating well and urinating. She would like to go home today. Pain is well controlled and she is taking ASA for VTE prophylaxis. Discharge Providers Date of admission: 09/01/17 08:08 Consults: 09/01/17 12:25 Consult to Discharge Planning Routine Comment: Consult to Physical Therapy Evaluate & Treat Comment: Physician Instructions: postop TKA protocol 09/03/17 15:03 Consult to Hospitalist Service Routine Comment: Consulting Provider: Izabella Kessler Reason for consultation: Confusion, fever and decreased o2 sats Has provider been notified: Yes Discharge provider: Sarah Pedro PA-C Summary Discharge Diagnosis: right knee osteonecrosis Hospital Course: Patient was admitted status post right TKA on 09/01/2017. She tolerated the procedure well with no complications. She was transferred for the recovery room to the surgical floor. She was seen by PT who recommended that she be discharged home with home PT. Patient did have a fever of T-max 101 ? F on postop day 2. Medicine consult was procured who recommended a UA which was negative, a chest x-ray which was negative, and Doppler to rule out DVT. This was also negative. Patient's temperature has stabilized since then. She is ready for discharge on 09/04/2017. Status at Discharge Cognitive/behavioral status at discharge: Alert and oriented x4. Functional status at discharge: uses cane/walker Overall status at discharge: patient is progressing back to baseline Time Spent with Patient Less than 30 minutes Exam Vital Signs (past 8 hours): Vital Signs - 8 hr 3 09/04/17 00:47 09/04/17 04:46 09/04/17 08:00 Temperature 98.1 F 98.8 F 98 F Pulse Rate 90 93 H Respiratory Rate 19 18 20 Blood Pressure 129/67 H 151/70 H 135/69 H Pulse Oximetry 97 93 98 Pulse Oximetry 98 Fraction of Inspired Oxygen 28 Oxygen Delivery Method Nasal Cannula Oxygen Flow Rate 2 Narrative Exam Narrative: Patient is well-developed well-nourished in no acute distress. Patient is alert and oriented x3. On exam patient has mild swelling around the operative knee, however, her calf is nontender and compressible. She is neurovascularly intact in this extremity. Surgical dressing is clean dry and intact. Objective Labs Result Diagrams: 09/03/17 14:03 09/03/17 14:03 Labs: Laboratory Results - last 24 hr 09/03/17 09/03/17 09/03/17 14:03 14:03 20:43 WBC 9.0 RBC 3.18 L Hgb 10.0 L Hct 29.2 L MCV 92.0 MCH 31.6 MCHC 34.3 RDW 13.5 Plt Count 196 Neut % (Auto) 79.6 H Lymph % (Auto) 9.0 L [place] % (Auto) 10.5 Eos % (Auto) 0.5 L Baso % (Auto) 0.4 Neut # (Auto) 7100 H Sodium 133 L Potassium 4.0 Chloride 96 L Carbon Dioxide 31 BUN 10 Creatinine 0.80 Estimated GFR > 60.0 BUN/Creatinine Ratio 12.5 Glucose 118 H Calcium 8.3 L Total Bilirubin 0.6 AST 15 ALT 28 Alkaline Phosphatase 54 Total Protein 5.7 L Albumin 2.9 L Globulin 2.8 Albumin/Globulin Ratio 1.0 Urine Color Yellow Urine Appearance Clear Urine pH 6.5 Ur Specific [place] <=1.005 Urine Protein Negative Urine Glucose (UA) Negative Urine Ketones Negative Urine Occult Blood Negative Urine Nitrate Negative Urine Bilirubin Negative Urine Urobilinogen 0.2 Ur Leukocyte Esterase Negative Urine RBC None seen Urine WBC None seen Urine Bacteria None seen Ur Culture Indicated? Cult not indicated Micro UA Comment Microscopic normal Discharge Plan Discharge Plan Patient Disposition: Home, Self-Care Discharge Med Rec/Prescriptions Prescriptions: New acetaminophen 325 mg Tablet 650 mg PO Q6HR Qty: 0 RF: 0 aspirin 81 mg Tablet,Delayed Release (Dr/Ec) 81 mg PO BID Qty: 90 RF: 0 ondansetron 4 mg Tablet,Disintegrating 4 mg PO Q4-6H PRN (Reason: Nausea) Qty: 30 RF: 0 oxycodone 10 mg Tablet 10 mg PO Q4H PRN (Reason: Pain, Moderate) Qty: 0 RF: 0 Continue methocarbamol 500 mg Tablet 1 g PO BEDTIME PRN (Reason: Muscle Spasm) RF: 0 amlodipine 2.5 mg Tablet 2.5 mg PO DAILY RF: 0 omeprazole 20 mg Capsule,Delayed Release(Dr/Ec) 20 mg PO BEDTIME PRN (Reason: ucler) RF: 0 polyethylene glycol 3350 [Miralax] 17 gram/dose Powder 0.5 g/kg PO DAILY RF: 0 dicyclomine 10 mg Capsule 10 mg PO QAM RF: 0 Follow up/Referrals: [facility] [Provider Group] - 09/05/17 10:00 am (Follow up with Sarah Pedro PA-C at the [place] office.) Provider Discharge Instructions Diet: Diet as Tolerated Activity: WBAT on affected extremity, rest when necessary. Keep operative leg elevated when resting. Cold/Heat Therapy: Ice affected leg for at least 20 minutes every hour. Wound Care Report to your healthcare provider any signs of infection, such as:: chills, fever, night sweats, increased pain and unusual drainage Dressing: Keep Aquacel on. May shower with dressing in place but no soaking. Visit Report/Discharge Packet Instructions: DI for Knee Replacement Discharge Data Attending Provider: Oscar Parker Admit Date/Time: 09/01/17 08:08 Quality VTE Deep Vein Thrombosis/Pulmonary Embolism Present on Admission: No
--- NOTE | 2017-09-04 09:26 | P.PN_ITS ---
Subjective Date Patient Seen: 09/04/17 Time Patient Seen: 08:19 Interval history: This is postop day 3 for this patient was admitted for total right knee replacement. Patient is sitting up in bed, eating breakfast, in no acute distress. Exam Vital Signs (past 8 hours): Vital Signs - 8 hr 3 09/04/17 04:46 09/04/17 08:00 Temperature 98.8 F 98 F Pulse Rate 93 H Respiratory Rate 18 20 Blood Pressure 151/70 H 135/69 H Pulse Oximetry 93 98 Pulse Oximetry 98 Fraction of Inspired Oxygen 28 Oxygen Delivery Method Nasal Cannula Oxygen Flow Rate 2 Narrative Exam Narrative: GENERAL: Well-appearing, well-nourished and in no acute distress. HEENT: Head normocephalic, atraumatic. Eyes pupils equal round NECK: Supple, no JVD, CHEST: Breath sounds equal bilaterally, no wheezes rales or rhonchi. CARDIAC: Regular rate and rhythm without murmurs, rubs or gallops. ABDOMEN: Soft, nontender. Normoactive bowel sounds all 4 quadrants. No guarding or rebound. EXTREMITIES: Normal range of motion, right knee was dressed in dressing. Right knee does have mild soft tissue swelling and subtle erythema NEUROLOGICAL: Alert and oriented; Normal muscle strength. SKIN: Warm, dry, no petechiae, no rashes or lesions. Objective Labs Result Diagrams: 09/03/17 14:03 09/03/17 14:03 Labs: Laboratory Results - last 24 hr 09/03/17 09/03/17 09/03/17 14:03 14:03 20:43 WBC 9.0 RBC 3.18 L Hgb 10.0 L Hct 29.2 L MCV 92.0 MCH 31.6 MCHC 34.3 RDW 13.5 Plt Count 196 Neut % (Auto) 79.6 H Lymph % (Auto) 9.0 L [place] % (Auto) 10.5 Eos % (Auto) 0.5 L Baso % (Auto) 0.4 Neut # (Auto) 7100 H Sodium 133 L Potassium 4.0 Chloride 96 L Carbon Dioxide 31 BUN 10 Creatinine 0.80 Estimated GFR > 60.0 BUN/Creatinine Ratio 12.5 Glucose 118 H Calcium 8.3 L Total Bilirubin 0.6 AST 15 ALT 28 Alkaline Phosphatase 54 Total Protein 5.7 L Albumin 2.9 L Globulin 2.8 Albumin/Globulin Ratio 1.0 Urine Color Yellow Urine Appearance Clear Urine pH 6.5 Ur Specific [place] <=1.005 Urine Protein Negative Urine Glucose (UA) Negative Urine Ketones Negative Urine Occult Blood Negative Urine Nitrate Negative Urine Bilirubin Negative Urine Urobilinogen 0.2 Ur Leukocyte Esterase Negative Urine RBC None seen Urine WBC None seen Urine Bacteria None seen Ur Culture Indicated? Cult not indicated Micro UA Comment Microscopic normal Assessment & Plan Plan: Assessment/Plan Narrative: 1.Fever on postop day 2 after right total knee arthroplasty. T-max 101?: Her CBC showed normal white blood cell count. Chest x-ray was without pleural effusions or any acute pulmonary disease findings. Her urinalysis was negative for infection. Vascular ultrasound did not show any evidence for lower extremity DVT. Blood cultures x2 are still pending. She has been afebrile for the last 24 hr. Orthopedic surgery has written discharge orders and instructions. To be followed up by Orthopedic surgery. 2. Hypertension: Her blood pressure is reasonably controlled. Continue outpatient medications. Quality VTE Deep Vein Thrombosis/Pulmonary Embolism Present on Admission: No
[2017-09-04] MEDS: DICYCLOMINE 10 MG CAPSULE PO (11:02)
[2017-09-04] MEDS: DOCUSATE 100 MG CAPSULE PO (11:02)
[2017-09-04] MEDS: AMLODIPINE 2.5 MG TABLET PO (11:02)
[2017-09-04] MEDS: ASPIRIN EC 81 MG TABLET PO (11:02)
--- NOTE | 2017-09-04 11:02 | PT.IPTN ---
Current Diagnoses Bilateral primary osteoarthritis of knee (09/01/17) Osteonecrosis, unspecified (09/01/17) Contusion of right knee, subsequent encounter (09/01/17) Presence of left artificial knee joint (09/01/17) Surgery Performed Operation Date: 09/01/17 09:45 Actual Procedures p Total Knee Arthroplasty(Right) - Oscar Parker MD Physical Therapy Treatment Note M2 PT-IP Current Condition Start: 09/01/17 13:54 Freq: NEEDED Status: Active Protocol: Document 09/02/17 09:05 RS (Rec: 09/02/17 12:33 RS [id number]) Physical Therapy Current Condition Current Condition Evaluation Date 09/02/17 Treatment Diagnosis impaired mobility s/p R TKA Onset Date 09/01/17 Weight Bearing Status Weight Bearing Status Weight Bear as Tolerated M3 PT-IP Subjective Start: 09/01/17 13:54 Freq: NEEDED Status: Active Protocol: Document 09/04/17 10:53 AB (Rec: 09/04/17 11:02 AB [id number]) Subjective Physical Therapy Visit Type Type Treatment Note Visit Start Time 09:00 Visit Stop Time 09:30 Total Visit Minutes 30 Number of SASH INSTALLER Visits 0 Physical Therapy Visit Comments Patient Comments i am ready to go home Therapy Pain Assessment Pain Present Pain Present Denied Pain M4 PT-IP Mobility and Gait Start: 09/01/17 13:54 Freq: NEEDED Status: Active Protocol: Document 09/04/17 10:53 AB (Rec: 09/04/17 11:02 AB [id number]) PT-Bed Mobility Assessment Rolling Level of Assist Standby Assistance PT-Transfer Assessment Sit to and From Stand Sit to and from Stand Standby Assistance Equipment Transfer Assistive Device Gait Belt Front Wheeled Walker Orthotic/Prosthetic Devices or Brace: No Transfers Transfer Destination Bed Chair Toilet Transfer Technique Stand Step Pivot Transfer Ability Level of Assist Standby Assistance Comments Mobility Comments pt completed transfers using FWW bed <>chair x 6 reps. cued on pushing from bed/chair for sit <>stand and reaching back for the chair with hands prior to sitting down. pt can be impulsive. Gait Assessment Gait Gait Assistance Required: Standby Assistance Contact Guard Assist Distance (Feet) (feet) 100 Able to Maintain Weight Bearing Status Yes During Gait Assistive Devices Assistive Device Gait Belt Front Wheeled Walker Orthotic/Prosthetic Devices or Brace: No Gait Deviations General Gait Pattern Antalgic Factors Limiting Gait Function Factors Limiting Gait Function Decreased Activity Tolerance Decreased Strength Poor Balance Poor Safety Awareness Comments Gait Comments pt ambulated in the hallway using FWW SBA and also ambulated towards the bathroom using FWW. cues required for safety. M5 PT-IP Objective Assessments Start: 09/01/17 13:54 Freq: NEEDED Status: Active Protocol: Document 09/02/17 09:05 RS (Rec: 09/02/17 12:33 RS [id number]) Orientation Orientation/Cognition Level of Alertness Confusional State Orientation Name Situation Safety Awareness Understands Safety Issues Comments Cognition seems impaired, likely related to pain medication Gross Range of Motion Upper Extremity ROM Assessment Within Functional Limits Lower Extremity ROM Assessment Right Impaired Strength Upper Extremity Strength Assessment Within Functional Limits Comments Strength Comments RLE not tested, LLE WFL M6 PT-IP Treatment Start: 09/01/17 13:54 Freq: NEEDED Status: Active Protocol: Document 09/03/17 14:55 GGD (Rec: 09/03/17 16:36 GGD [id number]) Physical Therapy Treatment Exercises Exercises Ankle Pumps Gluteal Sets Quad Sets Heel Slides Short Arc Quads M7 PT-IP Assessment and Plan Start: 09/01/17 13:54 Freq: NEEDED Status: Active Protocol: Document 09/04/17 10:53 AB (Rec: 09/04/17 11:02 AB [id number]) PT Summary Assessment and Plan Potential Rehabilitation Potential Good Summary Impairments Pain ROM Strength Balance Cognition Bed Mobility Transfers Gait Activity Tolerance Progress Towards Goals Progressing Toward Goals Assessment Summary pt doing well with mobility but requiring cues for safety. pt will have her spouse and daughter to assist her at home . Goals Bed Mobility Goal Independent Transfer Goal Standby Assistance Front Wheeled Walker Gait Goal Standby Assistance Front Wheel Walker Gait Distance 50 Days to Meet Goals 2 Treatment Plan Physical Therapy Treatment Plan Bed Mobility Training Transfer Training Gait Training Therapeutic Exercise Post Op Education Discharge Planning Other Recommendations and Next Treatment ambulation Focus Recommendations To Nursing Amount of Assist Needed 1 Person Assist Discharge Recommendations PT Discharge Recommendations Home with Assistance Outpatient PT
--- NOTE | 2017-09-04 15:45 | CM.DPNOTE ---
DC Note: Met w/pt this morning. IMM reviewed and pt signed in agreement, 1000. Pt confident about returning home w/assist from her spouse and dtr. Pt has outpt PT arranged and feels she has everything she needs. No SW needs. Family to transport. JKW
== END 2017-09-04 13:18 | disposition home or self-care (01) | DRG 470 ==
PROVIDERS: Physician Assistant; Admitting Provider Orthopaedic Surgery; Visit Provider Orthopaedic Surgery
PROC: 0SRC0JZ Replacement of Right Knee Joint with Synthetic Substitute, Open Approach (ICD-10-PCS; CPT 27447; principal; 2017-09-01 09:45)
DX: M17.11 Unilateral primary osteoarthritis, right knee (principal); K21.9 Gastro-esophageal reflux disease without esophagitis; Z96.652 Presence of left artificial knee joint; I10 Essential (primary) hypertension; R11.2 Nausea with vomiting, unspecified; R06.02 Shortness of breath; R50.9 Fever, unspecified; R41.0 Disorientation, unspecified
CPT/HCPCS: 36415; 71045; 73560; 80053; 81001; 85014; 85018; 85025; 87040; 93970; 94760; 97110; 97116; 97161; 97530; C1776; C9290; J0690; J1170; J2060; J2250; J2270; J2405; J2704; J3010